=== PATIENT | female | born 1980 | race Caucasian/White ===

== ENCOUNTER 2016-11-04 15:14 | Emergency (ER) | payer MEDICARE, MEDICAID ==
[~2016-11-04] VITALS: Ht 170.2 cm; Wt 116.0 kg
[~2016-11-04 15:14] MED LIST: AMOX250T PO; AMOX500T2 PO; HYDR-4246 PO
[2016-11-04 15:17] VITALS: Ht 170.2 cm; Wt 116.0 kg
--- OUTSIDE RECORDS SUMMARY | 2016-11-04 15:18 | XMS REPORT | Continuity of Care Document ---
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[employer] Unknown [phone] Insurance Providers Payer Name Policy Number Subscriber Name Relationship Medicare [id number] Diane Sabillon 20 Self Jonnie [employer] [id number] Diane Sabillon 20 Self Advance Directives Directive Response Recorded Date/Time Advanced Directives Type None 10/01/14 7:44pm Problems Medical Problems Problem Onset Date Status Toothache Unknown Active Toothache Unknown Active Medications Medication Dose Route Sig Days/Qty Instructions Order Date Discontinued Date Status Ranitidine Hcl 15 Mg PO TWICE A DAY 03/09/11 03/09/11 Discontinued Amoxicillin Trihydrate 500 Mg PO TWICE A DAY 10/01/14 Active Amoxicillin 1 Tab PO THREE TIMES A DAY 10 Qty 10/01/14 Active Hydrocodone/Acetaminophen 1-2 Tab PO Every 6 Hours PRN PAIN 15 Qty 07/05 Active Social History Social History Problem Response Recorded Date/Time Chewing Tobacco Status No 10/01/2014 7:55pm Hx Substance Use No 10/01/2014 7:55pm Hx Alcohol Use No 10/01/2014 7:55pm Query Response Start Date Stop Date Smoking Status Never smoker Hospital Discharge Instructions No hospital discharge instructions. Plan of Care No plan of care. Functional Status Query Response Date Recorded Physical Hygiene Self October 01, 2014 7:55pm Disabilities Visual October 01, 2014 7:55pm Devices Used Glasses October 01, 2014 7:55pm Dressing Self October 01, 2014 7:55pm Ambulation Self October 01, 2014 7:55pm Diet Self October 01, 2014 7:55pm Mental Status Alert Oriented October 01, 2014 7:55pm Disabilities Visual October 01, 2014 7:55pm Devices Used Glasses October 01, 2014 7:55pm Physical Hygiene Self October 01, 2014 7:55pm Dressing Self October 01, 2014 7:55pm Ambulation Self October 01, 2014 7:55pm Diet Self October 01, 2014 7:55pm Allergies, Adverse Reactions, Alerts Allergen Type Severity Reaction Status Last Updated No Known Allergies Active 10/01/14 Immunizations Name Given Type Hx Influenza Vaccination Y fall 2013 Historical Hx Pneumococcal Vaccination No Historical Hx Influenza Vaccination Y fall 2013 Historical Vital Signs Acute Vital Signs Vital Response Date/Time Temperature (Fahrenheit) 97.4 deg F (96.8 - 99.1) Temperature (Calculated Celsius) 36.56988 degrees C (36.0 - 37.3) Pulse Rate (adult) 88 bpm (60 - 100) Respiratory Rate 14 breaths/min (10 - 20) O2 Sat by Pulse Oximetry 99 % (90 - 100) Blood Pressure 138/78 mm Hg Height 5 ft 5 in Weight 261 lb Body Mass Index 43.0 kg/m^2 Results Test Source Date Result Interp. Ref. Range Comments Alanine Aminotransferase (ALT/SGPT) March 09, 2011 6:33pm 15 U/L N 9-52 Albumin March 09, 2011 6:33pm 4.4 G/DL N 3.5-5.0 Albumin/Globulin Ratio March 09, 2011 6:33pm 1.4 RATIO N 1.1-2.2 Alkaline Phosphatase March 09, 2011 6:33pm 93 U/L N 38-126 Anion Gap March 09, 2011 6:33pm 12 MEQ/L N 5-15 Aspartate Amino Transf (AST/SGOT) March 09, 2011 6:33pm 17 U/L N 14-36 BUN/Creatinine Ratio March 09, 2011 6:33pm 12 RATIO N 6-26 Basophils # (Auto) March 09, 2011 6:33pm 0.0 T/MM3 N 0-0.2 Basophils (%) (Auto) March 09, 2011 6:33pm 0.4 % N 0-2 Blood Urea Nitrogen March 09, 2011 6:33pm 12.0 MG/DL N 7-17 Calcium Level March 09, 2011 6:33pm 9.4 MG/DL N 8.4-10.2 Calculated Osmolality March 09, 2011 6:33pm 286 MOSM/KG H 261-280 Carbon Dioxide Level March 09, 2011 6:33pm 26 MEQ/L N 22-30 Chloride Level March 09, 2011 6:33pm 109 MEQ/L H 98-107 Creatinine March 09, 2011 6:33pm 1.0 MG/DL N 0.7-1.2 Eosinophils # (Auto) March 09, 2011 6:33pm 0.2 T/MM3 N 0-0.5 Eosinophils (%) (Auto) March 09, 2011 6:33pm 1.8 % N 0-4 Globulin March 09, 2011 6:33pm 3.2 G/DL N 2.4-3.6 Glucose Level March 09, 2011 6:33pm 178 MG/DL H 65-110 Hematocrit March 09, 2011 6:33pm 38.3 % N 36-46 Hemoglobin March 09, 2011 6:33pm 12.8 GM/DL N 12-16 Lymphocytes # (Auto) March 09, 2011 6:33pm 1.7 T/MM3 N 1-4.8 Lymphocytes (%) (Auto) March 09, 2011 6:33pm 16.8 % L 23-45 Mean Corpuscular Hemoglobin March 09, 2011 6:33pm 30.3 UUG N 26-34 Mean Corpuscular Hemoglobin Concent March 09, 2011 6:33pm 33.4 GM/DL N 31 -37 Mean Corpuscular Volume March 09, 2011 6:33pm 90.5 UM3 N 80-100 Mean Platelet Volume March 09, 2011 6:33pm 9.9 UM3 N 9.4-12.4 Monocytes # (Auto) March 09, 2011 6:33pm 0.5 T/MM3 N 0-0.8 Monocytes (%) (Auto) March 09, 2011 6:33pm 4.6 % N 0-9.0 Monoscreen March 09, 2011 6:33pm Negative - Neutrophils # (Auto) March 09, 2011 6:33pm 7.5 T/MM3 N 1.8-7.7 Neutrophils (%) (Auto) March 09, 2011 6:33pm 76.2 % H 33-66 Platelet Count March 09, 2011 6:33pm 279 T/MM3 N 130-400 Potassium Level March 09, 2011 6:33pm 4.2 MEQ/L N 3.6-5 RDW Standard Deviation March 09, 2011 6:33pm 41.8 FL N 36.9-50.2 Red Blood Count March 09, 2011 6:33pm 4.23 M/MM3 N 4.00-5.20 Sodium Level March 09, 2011 6:33pm 147 MEQ/L H 134-144 Total Bilirubin March 09, 2011 6:33pm 0.30 MG/DL N 0.20-1.30 Total Protein March 09, 2011 6:33pm 7.6 G/DL N 6.3-8.2 Urine Bacteria March 09, 2011 6:15pm 1+ H - Has specimen been collected/ obtained? Y Urine Bilirubin March 09, 2011 6:15pm Negative - Has specimen been collected/obtained? Y Urine Blood March 09, 2011 6:15pm 3+ H - Has specimen been collected/ obtained? Y Urine Collection Type March 09, 2011 6:15pm Voided - Has specimen been collected/obtained? Y Urine Color March 09, 2011 6:15pm Yellow - Has specimen been collected /obtained? Y Urine Culture Indicated March 09, 2011 6:15pm Cult not set up - Has specimen been collected/obtained? Y Urine Glucose (UA) March 09, 2011 6:15pm Negative - Has specimen been collected/obtained? Y Urine Ketones March 09, 2011 6:15pm Trace H - Has specimen been collected/obtained? Y Urine Leukocyte Esterase March 09, 2011 6:15pm Negative - Has specimen been collected/obtained? Y Urine Nitrite March 09, 2011 6:15pm Negative - Has specimen been collected/obtained? Y Urine Test March 09, 2011 6:15pm Negative - Has specimen been collected/obtained? Y Urine Protein March 09, 2011 6:15pm Negative - Has specimen been collected/obtained? Y Urine RBC March 09, 2011 6:15pm 10-20 /HPF H - Has specimen been collected/obtained? Y Urine Specific [place] March 09, 2011 6:15pm 1.025 - Has specimen been collected/obtained? Y Urine Squamous Epithelial Cells March 09, 2011 6:15pm Many - Has specimen been collected/obtained? Y Urine Turbidity March 09, 2011 6:15pm Slt cldy - Has specimen been collected/obtained? Y Urine Urobilinogen March 09, 2011 6:15pm Normal EU/DL - Has specimen been collected/obtained? Y Urine WBC March 09, 2011 6:15pm 1-3 /HPF - Has specimen been collected /obtained? Y Urine pH March 09, 2011 6:15pm 5.0 - Has specimen been collected/ obtained? Y White Blood Count March 09, 2011 6:33pm 9.9 T/MM3 N 4.5-11.0 Glomerular Filtration Rate Calc March 09, 2011 6:33pm 66 - Immature Granulocyte # (Auto) March 09, 2011 6:33pm 0.02 T/MM3 N 0.00- 0.03 Immature Granulocyte % (Auto) March 09, 2011 6:33pm 0.2 % N 0.0-0.5 Procedures Procedure Status Date Provider(s) EMERGENCY DEPT VISIT completed 10/01/14 [id number] ITEM OR SERVICE completed 10/01/14 Encounters Encounter Location Date/Time Departed Emergency Room [facility] 10/01/14 7:41pm Recent Diagnosis
--- OUTSIDE RECORDS SUMMARY | 2016-11-04 15:18 | XMS REPORT | Continuity of Care Document ---
Author Author [facility] Organization [facility] Address Unknown Phone Unavailable Allergies Medications Problems Procedures Results Encounters ACCT No. Visit Date/Time Discharge Status Pt. Type Provider Facility Loc./Unit Complaint [id number] 11/04/2013 10:40:00 11/04/2013 23 :59:59 CLS Outpatient
--- OUTSIDE RECORDS SUMMARY | 2016-11-04 15:19 | XMS REPORT | Referral Summary ---
Author Author [facility] Organization [facility] Address Unknown Phone Unavailable Care Team Providers Care Kraft Mill Operator Name Role Phone Mat Lyman Primary Care Physician [phone] Encounter Date(s): 09/12/16 - 09/12/16 [facility] [address] [place] [id number]- Discharge Diagnosis: Gastroesophageal reflux disease (disorder) Discharge Diagnosis: Benign essential HTN Discharge Diagnosis: Allergic rhinitis (disorder) Discharge Diagnosis: Depression Discharge Disposition: 01-Home or Self Care Attending Physician: Cm Lyman MD Admitting Physician: Cm Lyman MD Vital Signs Most recent to 1 oldest [Reference Range]: Temperature Tympanic 36.4 degC [36.6-38.1 degC] *LOW* (09/12/16 2:24 PM) Peripheral Pulse 84 bpm Rate [60-100 bpm] (09/12/16 2:24 PM) Respiratory Rate 16 br/min [14-20 br/min] (09/12/16 2:24 PM) Blood Pressure 100/76 mmHg [90-140/60-90 mmHg] (09/12/16 2:24 PM) Problem List Condition Effective Dates Status Health Status Informant Allergic rhinitis Active (disorder)(Confirmed ) Diabetes(Confirmed) Active Gastroesophageal Active reflux disease (disorder)(Confirmed ) Impaired fasting Active glycaemia (disorder)(Confirmed ) Obesity Active (disorder)(Confirmed ) Pneumonia(Confirmed) Active Depression(Confirmed Active ) Tension Active headache(Confirmed) Chicken Active pox(Confirmed) Allergies, Adverse Reactions, Alerts No Known Allergies Medications Claritin 10 mg oral tablet 10 mg 1 tabs, Oral, Daily, # 90 tabs, 3 Refill(s) Start Date: 09/12/16 Status: Ordered Flonase 50 mcg/inh nasal spray 100 mcg 2 sprays, Nasal, Daily, # 16 g, 5 Refill(s), Pharmacy: [facility] [place] Start Date: 07/06/16 Status: Ordered lisinopril 20 mg oral tablet 20 mg 1 tabs, Oral, Daily, # 30 tabs, 6 Refill(s), Pharmacy: [facility] [place] Start Date: 05/31/16 Status: Ordered loratadine 10 mg, Oral, Daily, 0 Refill(s) Start Date: 04/29/15 Status: Ordered medroxyPROGESTERone 150 mg/mL intramuscular suspension 150 mg 1 mL, IntraMuscular, q3mo, # 1 mL, 3 Refill(s), Pharmacy: [facility] [place], for control, 1 mL IntraMuscular q3mo Start Date: 01/27/16 Status: Ordered ranitidine 150 mg oral tablet 150 mg 1 tabs, Oral, BID, # 180 tabs, 0 Refill(s) Start Date: 12/10/15 Status: Ordered Tylenol Regular Strength 325 mg oral tablet 650 mg 2 tabs, Oral, q4hr, as needed for pain, 0 Refill(s) Start Date: 12/10/15 Status: Ordered Results No data available for this section Immunizations Given and Recorded Vaccine Date Status Refusal Reason tetanus/diphth/pertuss (Tdap) adult/adol1 12/18/07 Recorded hepatitis B pediatric vaccine 03/13/06 Given hepatitis B pediatric vaccine 10/14/05 Given hepatitis B pediatric vaccine 09/13/05 Given human papillomavirus vaccine 01/02/07 Given human papillomavirus vaccine 11/03/06 Given influenza virus vaccine, inactivated 05/15/15 Recorded influenza virus vaccine, inactivated 09/06/11 Recorded influenza virus vaccine, inactivated 06/03/10 Recorded influenza virus vaccine, inactivated 04/29/10 Recorded influenza virus vaccine, inactivated 05/29/09 Recorded influenza virus vaccine, inactivated 07/03/07 Recorded influenza virus vaccine, inactivated 08/02/04 Recorded influenza virus vaccine, live 06/25/13 Given tetanus/diphtheria/pertussis, acel(Tdap) 12/18/07 Recorded 1Result Comment: [06/25/2015 Uncharted] duplicate Procedures Procedure Date Related Diagnosis Body Site PAP test date 07/15/15 Social History Social History Type Response Smoking Status Never smoker Assessment and Plan Extracted from: Title: Office Visit Note Author: Cm Lyman MD Date: 09/12/16 Assessment/Plan 1.Allergic rhinitis (disorder) Claritin 10 mg by mouth daily regularly and see if that doesn't help. Continue fluticasone spray. 2.Depression Chronic relatively stable no change in current treatment. 3.Gastroesophageal reflux disease (disorder) Chronic and stable no change in current treatment. 4.Benign essential HTN Blood pressures adequately controlled no change in current treatment recommended. She will be due for lab in recommended a CBC CMP and lipid panel fasting then.
--- OUTSIDE RECORDS SUMMARY | 2016-11-04 15:19 | XMS REPORT | Referral Summary ---
Author Author [facility], [facility] Organization [facility] Address Unknown Phone Unavailable Care Team Providers Care Budget Director Name Role Phone Mat Lyman Primary Care Physician [phone] Encounter Date(s): 05/04/15 - 05/04/15 [facility] [address] [place] [address] Discharge Diagnosis: Cellulitis Discharge Disposition: 01-Home or Self Care Attending Physician: Neri Galicia PA-C Admitting Physician: Neri Galiica PA-C Vital Signs Most recent to 1 oldest [Reference Range]: Temperature Tympanic 37.0 degC [36.6-38.1 degC] (05/04/15 4:35 PM) Apical Heart Rate 114 bpm [60-100 bpm] *HI* (05/04/15 4:35 PM) SpO2 98 % (05/04/15 4:35 PM) Problem List Condition Effective Dates Status Health Status Informant Allergic rhinitis Active (disorder)(Confirmed ) Depression(Confirmed Active ) Diabetes(Confirmed) Active Gastroesophageal Active reflux disease (disorder)(Confirmed ) Impaired fasting Active glycaemia (disorder)(Confirmed ) Obesity Active (disorder)(Confirmed ) Pneumonia(Confirmed) Active Tension Active headache(Confirmed) Chicken Active pox(Confirmed) Allergies, Adverse Reactions, Alerts No Known Allergies Medications Depo-Provera 400 mg/mL intramuscular suspension 150 mg, IntraMuscular, q3mo, # 3 vials, 1 Refill(s), Pharmacy: [facility] [place], 150 mg IntraMuscular q3mo Start Date: 01/26/15 Status: Ordered loratadine 10 mg, Oral, Daily, 0 Refill(s) Start Date: 04/29/15 Status: Ordered Results No data available for this section Immunizations Vaccine Date Refusal Reason hepatitis B pediatric vaccine 03/13/06 hepatitis B pediatric vaccine 10/14/05 hepatitis B pediatric vaccine 09/13/05 human papillomavirus vaccine 5/15/07 human papillomavirus vaccine 11/03/06 influenza virus vaccine, inactivated 05/15/15 influenza virus vaccine, inactivated 09/06/11 influenza virus vaccine, inactivated 06/03/10 influenza virus vaccine, inactivated 04/29/10 influenza virus vaccine, inactivated 05/29/09 influenza virus vaccine, inactivated 07/03/07 influenza virus vaccine, inactivated 08/02/04 influenza virus vaccine, live 06/25/13 tetanus/diphtheria/pertussis, acel(Tdap) 12/18/07 Procedures No data available for this section Social History Social History Type Response Smoking Status Never smoker Assessment and Plan Extracted from: Title: Ambulatory Patient Education Author: Neri Galicia PA-C Date: Home Health Care Cellulitis Cellulitis is an infection of the skin and the tissue beneath it. The infected area is usually red and tender. Cellulitis occurs most often in the arms and lower legs. CAUSES Cellulitis is caused by bacteria that enter the skin through cracks or cuts in the skin. The most common types of bacteria that cause cellulitis are Staphylococcus and Streptococcus. SYMPTOMS Redness and warmth. Swelling. Tenderness or pain. Fever. DIAGNOSIS Your caregiver can usually determine what is wrong based on a physical exam. Blood tests may also be done. TREATMENT Treatment usually involves taking an antibiotic medicine. HOME CARE INSTRUCTIONS Take your antibiotics as directed. Finish them even if you start to feel better. Keep the infected arm or leg elevated to reduce swelling. Apply a warm cloth to the affected area up to 4 times per day to relieve pain. Only take [id number] or prescription medicines for pain, discomfort, or fever as directed by your caregiver. Keep all follow-up appointments as directed by your caregiver. SEEK MEDICAL CARE IF: You notice red streaks coming from the infected area. Your red area gets larger or turns dark in color. Your bone or joint underneath the infected area becomes painful after the skin has healed. Your infection returns in the same area or another area. You notice a swollen bump in the infected area. You develop new symptoms. SEEK IMMEDIATE MEDICAL CARE IF: You have a fever. You feel very sleepy. You develop vomiting or diarrhea. You have a general ill feeling (malaise) with muscle aches and pains. MAKE SURE YOU: Understand these instructions. Will watch your condition. Will get help right away if you are not doing well or get worse. Document Released: 05/17/2006 Document Revised: 02/05/2013 Document Reviewed: [employer] Patient Information 2015 [employer]. This information is not intended to replace advice given to you by your health care provider. Make sure you discuss any questions you have with your health care provider. Cellulitis Cellulitis is an infection of the skin and the tissue beneath it. The infected area is usually red and tender. Cellulitis occurs most often in the arms and lower legs. CAUSES Cellulitis is caused by bacteria that enter the skin through cracks or cuts in the skin. The most common types of bacteria that cause cellulitis are Staphylococcus and Streptococcus. SYMPTOMS Redness and warmth. Swelling. Tenderness or pain. Fever. DIAGNOSIS Your caregiver can usually determine what is wrong based on a physical exam. Blood tests may also be done. TREATMENT Treatment usually involves taking an antibiotic medicine. HOME CARE INSTRUCTIONS Take your antibiotics as directed. Finish them even if you start to feel better. Keep the infected arm or leg elevated to reduce swelling. Apply a warm cloth to the affected area up to 4 times per day to relieve pain. Only take [id number] or prescription medicines for pain, discomfort, or fever as directed by your caregiver. Keep all follow-up appointments as directed by your caregiver. SEEK MEDICAL CARE IF: You notice red streaks coming from the infected area. Your red area gets larger or turns dark in color. Your bone or joint underneath the infected area becomes painful after the skin has healed. Your infection returns in the same area or another area. You notice a swollen bump in the infected area. You develop new symptoms. SEEK IMMEDIATE MEDICAL CARE IF: You have a fever. You feel very sleepy. You develop vomiting or diarrhea. You have a general ill feeling (malaise) with muscle aches and pains. MAKE SURE YOU: Understand these instructions. Will watch your condition. Will get help right away if you are not doing well or get worse. Document Released: 05/17/2006 Document Revised: 02/05/2013 Document Reviewed: [employer] Patient Information 2015 [employer]. This information is not intended to replace advice given to you by your health care provider. Make sure you discuss any questions you have with your health care provider. No follow up information was provided. Extracted from: Title: cellulitis Author: Neri Galicia PA-C Date: 05/04/15 Assessment/Plan 1.Cellulitis Keflex as directed; the area that was blistered, I cleansed with saline, applied Xeroform over the open area then a loose fitting bandage. Recommend keeping this area cleaned with soap and water, then dried and reapply the Xeroform and a bandage for 2 days if she began having worsening symptoms of cellulitis surrounding the lesion, then discontinue the bandage. Diagnosis and treatment discussed. Patient advised to follow up with PCP in 2- 3 days. If symptoms worsen at any time, patient will go to the nearest ER for further evaluation. Patient stable upon discharge, alert and orientated with no apparent distress, and indicated understanding of discharge instructions. Orders: cephalexin, 500 mg 1 caps, Oral, QID, X 7 days, # 28 caps, 0 Refill(s) , Pharmacy: [facility] [id number], 1 caps Oral QID,x7 days
--- OUTSIDE RECORDS SUMMARY | 2016-11-04 15:19 | XMS REPORT | Referral Summary ---
Author Author [facility] Organization [facility] Address Unknown Phone Unavailable Care Team Providers Care Case Coordinator Name Role Phone Mat Lyman Primary Care Physician [phone] Encounter [facility] [id number] Date(s): 04/29/15 - 04/29/15 [facility] [address] [place] [address]- Discharge Diagnosis: Acute sinusitis Discharge Disposition: 01-Home or Self Care Attending Physician: Cm Lyman MD Admitting Physician: Cm Lyman MD Vital Signs Most recent to 1 oldest [Reference Range]: Temperature Tympanic 37.1 degC [36.6-38.1 degC] (04/29/15 2:55 PM) Peripheral Pulse 88 bpm Rate [60-100 bpm] (04/29/15 2:55 PM) Blood Pressure 116/84 mmHg [90-140/60-90 mmHg] (04/29/15 2:55 PM) Problem List Condition Effective Dates Status [...] B pediatric vaccine 09/13/05 human papillomavirus vaccine 01/02/07 human papillomavirus vaccine 11/03/06 influenza virus vaccine, [...] Extracted from: Title: Ambulatory Patient Education Author: Cm Lyman MD Date: Allergy Sinusitis Sinusitis is redness, soreness, and swelling (inflammation) of the paranasal sinuses. Paranasal sinuses are air pockets within the bones of your face ( beneath the eyes, the middle of the forehead, or above the eyes). In healthy paranasal sinuses, mucus is able to drain out, and air is able to circulate through them by way of your nose. However, when your paranasal sinuses are inflamed, mucus and air can become trapped. This can allow bacteria and other germs to grow and cause infection. Sinusitis can develop quickly and last only a short time (acute) or continue over a long period (chronic). Sinusitis that lasts for more than 12 weeks is considered chronic. CAUSES Causes of sinusitis include: Allergies. Structural abnormalities, such as displacement of the cartilage that separates your nostrils (deviated septum), which can decrease the air flow through your nose and sinuses and affect sinus drainage. Functional abnormalities, such as when the small hairs (cilia) that line your sinuses and help remove mucus do not work properly or are not present. SYMPTOMS Symptoms of acute and chronic sinusitis are the same. The primary symptoms are pain and pressure around the affected sinuses. Other symptoms include: Upper toothache. Earache. Headache. Bad breath. Decreased sense of smell and taste. A cough, which worsens when you are lying flat. Fatigue. Fever. Thick drainage from your nose, which often is green and may contain pus ( purulent). Swelling and warmth over the affected sinuses. DIAGNOSIS Your caregiver will perform a physical exam. During the exam, your caregiver may : Look in your nose for signs of abnormal growths in your nostrils (nasal polyps). Tap over the affected sinus to check for signs of infection. View the inside of your sinuses (endoscopy) with a special imaging device with a light attached (endoscope), which is inserted into your sinuses. If your caregiver suspects that you have chronic sinusitis, one or more of the following tests may be recommended: Allergy tests. Nasal cultureA sample of mucus is taken from your nose and sent to a lab and screened for bacteria. Nasal cytologyA sample of mucus is taken from your nose and examined by your caregiver to determine if your sinusitis is related to an allergy. TREATMENT Most cases of acute sinusitis are related to a viral infection and will resolve on their own within 10 days. Sometimes medicines are prescribed to help relieve symptoms (pain medicine, decongestants, nasal steroid sprays, or saline sprays) . However, for sinusitis related to a bacterial infection, your caregiver will prescribe antibiotic medicines. These are medicines that will help kill the bacteria causing the infection. Rarely, sinusitis is caused by a fungal infection. In theses cases, your caregiver will prescribe antifungal medicine. For some cases of chronic sinusitis, surgery is needed. Generally, these are cases in which sinusitis recurs more than 3 times per year, despite other treatments. HOME CARE INSTRUCTIONS Drink plenty of water. Water helps thin the mucus so your sinuses can drain more easily. Use a humidifier. Inhale steam 3 to 4 times a day (for example, sit in the bathroom with the shower running). Apply a warm, moist washcloth to your face 3 to 4 times a day, or as directed by your caregiver. Use saline nasal sprays to help moisten and clean your sinuses. Take tbhk-fjp-eaxbwuw or prescription medicines for pain, discomfort, or fever only as directed by your caregiver. SEEK IMMEDIATE MEDICAL CARE IF: You have increasing pain or severe headaches. You have nausea, vomiting, or drowsiness. You have swelling around your face. You have vision problems. You have a stiff neck. You have difficulty breathing. MAKE SURE YOU: Understand these instructions. Will watch your condition. Will get help right away if you are not doing well or get worse. Document Released: 08/07/2006 Document Revised: 10/29/2012 Document Reviewed: [facility] Patient Information 2015 [employer] [facility]. This information is not intended to replace advice given to you by your health care provider. Make sure you discuss any questions you have with your health care provider. No follow up information was provided. Extracted from: Title: Office Visit Note Author: Cm Lyman MD Date: 04/29/15 Assessment/Plan Acute sinusitis I recommended Zithromax as a Z-Sai. Encouraged her to use lyof-qpm-rllxyzf plain Mucinex. I called out some Kehinde Ivy for her. If she's not improving over the next week or symptoms seem to be progressive or worsening she'll let us know. Ordered: Office Visit Level 3 Est 78153 Orders: benzonatate, 100 mg 1 caps, Oral, TID, X 7 days, # 21 caps, 0 Refill(s ), Pharmacy: [facility] [id number], 1 caps Oral TID,x7 days
--- OUTSIDE RECORDS SUMMARY | 2016-11-04 15:19 | XMS REPORT | Referral Summary ---
Author Author [facility] Organization Via [facility] Address Unknown Phone Unavailable Care Team Providers Care Palm And Back Forger Name Role Phone Mat Lyman Primary Care Physician [phone] Encounter Date(s): 04/06/16 - 04/06/16 [facility] [address] [place] [id number] Discharge Diagnosis: Benign essential HTN Discharge Diagnosis: Hand eczema Discharge Disposition: 01-Home or Self Care Attending Physician: Cm Lyman MD Admitting Physician: Cm Lyman MD Referring Physician: Cm Lyman MD Vital Signs Most recent to 1 oldest [Reference Range]: Temperature Tympanic 36.5 degC [36.6-38.1 degC] *LOW* (04/06/16 2:11 PM) Peripheral Pulse 76 bpm Rate [60-100 bpm] (04/06/16 2:11 PM) Respiratory Rate 16 br/min [14-20 br/min] (04/06/16 2:11 PM) Blood Pressure 116/74 mmHg [90-140/60-90 mmHg] (04/06/16 2:11 PM) Problem List Condition Effective Dates Status Health Status Informant Allergic rhinitis Active (disorder)(Confirmed ) Depression(Confirmed Active ) Diabetes(Confirmed) Active Gastroesophageal Active reflux disease (disorder)(Confirmed ) Impaired fasting Active glycaemia (disorder)(Confirmed ) Obesity Active (disorder)(Confirmed ) Pneumonia(Confirmed) Active Tension Active headache(Confirmed) Chicken Active pox(Confirmed) Allergies, Adverse Reactions, Alerts No Known Allergies Medications Flonase 50 mcg/inh nasal spray 2 sprays, Nasal, Daily, # 16 g, 0 Refill(s) Start Date: 12/10/15 Status: Ordered lisinopril 20 mg oral tablet 20 mg 1 tabs, Oral, Daily, # 30 tabs, 6 Refill(s) Start Date: 12/09/15 Status: Ordered loratadine 10 mg, Oral, Daily, 0 Refill(s) Start Date: 04/29/15 Status: Ordered medroxyPROGESTERone 150 mg/mL intramuscular suspension 150 mg 1 mL, IntraMuscular, q3mo, # 1 mL, 3 Refill(s), Pharmacy: [facility], for control, 1 mL IntraMuscular q3mo Start [...] vaccine, live 06/25/13 tetanus/diphtheria/pertussis, acel(Tdap) 12/18/07 Procedures Procedure Date Related Diagnosis Body Site PAP test date 07/15/15 Social History Social History Type Response Smoking Status Never smoker Assessment and Plan Extracted from: Title: Office Visit Note Author: Cm Lyman MD Date: 04/06/16 Assessment/Plan 1.Benign essential HTN Blood pressures well-controlled. Continue current dose of lisinopril. Report card reviewed and provided. Follow-up in 6 months sooner if problems or concerns occur. Ordered: Office Visit Level 3 Est 48848 2.Hand eczema, Other atopic dermatitis I recommended smaller rmvs-iln-oeldlro hydrocortisone creamto be used as needed. Ifrash worsens or further problems develop she'll let us now. She may continue to use volq-vec-vwunsts moisturizers as well. Ordered: Office Visit Level 3 Est 29633
--- OUTSIDE RECORDS SUMMARY | 2016-11-04 15:19 | XMS REPORT | Referral Summary ---
Author Author [facility] Organization Via [facility] Sof[facility] Address Unknown Phone Unavailable Care Team Providers Care Cash Control Specialist Name Role Phone Mat Lyman Primary Care Physician [phone] Encounter [facility] Date(s): 01/07/16 - 01/07/16 [facility] [address] [place] [id number] Discharge Diagnosis: Benign essential HTN Discharge Disposition: 01-Home or Self Care Attending Physician: Cm Lyman MD Admitting Physician: Cm Lyman MD Vital Signs Most recent to 1 oldest [Reference Range]: Temperature Tympanic 36.7 degC [36.6-38.1 degC] (01/07/16 2:01 PM) Peripheral Pulse 84 bpm Rate [60-100 bpm] (01/07/16 2:01 PM) Respiratory Rate 16 br/min [14-20 br/min] (01/07/16 2:01 PM) Blood Pressure 114/66 mmHg [90-140/60-90 mmHg] (01/07/16 2:01 PM) Problem List Condition Effective Dates Status [...] IntraMuscular q3mo Start Date: 01/26/15 Status: Ordered Flonase 50 mcg/inh nasal spray 2 sprays, Nasal, Daily, # 16 g, 0 Refill(s) Start Date: 4/21/16 Status: Ordered lisinopril 20 mg oral tablet 20 mg 1 tabs, Oral, Daily, # 30 tabs, 6 Refill(s) Start Date: 12/09/15 Status: Ordered loratadine 10 mg, Oral, Daily, 0 Refill(s) Start Date: 04/29/15 Status: Ordered ranitidine 150 mg oral tablet [...] Visit Note Author: Cm Lyman MD Date: 01/07/16 Assessment/Plan 1.Benign essential HTN Blood pressure appears to be well controlled. Continue lisinopril 20 mg daily. Other medications reviewed no changes are recommended. Three-month follow-up encouraged. Call with problems or concerns. Ordered: Office Visit Level 3 Est 23670
--- OUTSIDE RECORDS SUMMARY | 2016-11-04 15:19 | XMS REPORT | Referral Summary ---
Author Author [facility] Organization Via [facility] Sofia [facility] Address Unknown Phone Unavailable Care Team Providers Care Hardener Helper Name Role Phone Mat Lyman Primary Care Physician [phone] Encounter [facility] Date(s): 10/12/16 - 10/12/16 [facility] [address] [place] [phone] [place] Discharge Diagnosis: Acute pharyngitis Discharge Diagnosis: Benign essential HTN Discharge Disposition: 01-Home or Self Care Attending Physician: Cm Lyman MD Admitting Physician: Cm Lyman MD Vital Signs Most recent to 1 oldest [Reference Range]: Temperature Tympanic 36.7 degC [36.6-38.1 degC] (10/12/16 2:16 PM) Peripheral Pulse 100 bpm Rate [60-100 bpm] (10/12/16 2:16 PM) Respiratory Rate 6 br/min [14-20 br/min] *LOW* (10/12/16 2:16 PM) Blood Pressure 108/76 mmHg [90-140/60-90 mmHg] (10/12/16 2:16 PM) Problem List Condition Effective Dates Status Health Status Informant Allergic rhinitis Active (disorder)(Confirmed ) Benign essential Active HTN(Confirmed) Diabetes(Confirmed) Active Gastroesophageal Active reflux disease (disorder)(Confirmed [...] 16 g, 5 Refill(s), Pharmacy: [facility] Start Date: 07/06/16 Status: Ordered lisinopril 20 mg oral tablet 20 mg 1 tabs, Oral, Daily, # 30 tabs, 6 Refill(s), Pharmacy: [facility] [place] Start Date: 05/31/16 Status: Ordered medroxyPROGESTERone 150 mg/mL intramuscular suspension 150 mg 1 mL, IntraMuscular, q3mo, # 1 mL, 3 Refill(s), Pharmacy: [facility] [place], for control, 1 mL IntraMuscular q3mo Start [...] vaccine 11/03/06 Given influenza virus vaccine, inactivated 05/21/16 Recorded influenza virus vaccine, inactivated 05/15/15 Recorded influenza [...] Visit Note Author: Cm Lyman MD Date: 10/12/16 Assessment/Plan 1.Acute pharyngitis,Sore throat Rapid strep is negative. I think this is likely viral upper respiratory infection. I've recommended symptomatic treatment with Tylenol or ibuprofen as needed warm salt water gargles as neededrest and increased fluid intake encouraged. If symptoms progress or worsen or further problems develop follow- up. Ordered: Office Visit Level 3 Est 00691 2.Benign essential HTN Blood pressure appears well controlled no change in current treatment. Ordered: Office Visit Level 3 Est 68431
--- OUTSIDE RECORDS SUMMARY | 2016-11-04 15:19 | XMS REPORT | Referral Summary ---
Author Author [facility] Organization Via [facility] Sof[facility] Address Unknown Phone Unavailable Care Team Providers Care Employee Development Manager Name Role Phone Mat Lyman Primary Care Physician [phone] Encounter Date(s): 01/19/15 - 01/19/15 [facility] Newton [address] [place] [phone]- Discharge Diagnosis: Bronchitis, acute Discharge Disposition: 01-Home or Self Care Attending Physician: Cm Lyman MD Admitting Physician: Cm Lyman MD Vital Signs Most recent to 1 oldest [Reference Range]: Temperature Tympanic 36.8 degC [36.6-38.1 degC] (01/19/15 4:30 PM) Peripheral Pulse 96 bpm Rate [60-100 bpm] (01/19/15 4:30 PM) Blood Pressure 140/90 mmHg [90-140/60-90 mmHg] (01/19/15 4:30 PM) Problem List Condition Effective Dates Status [...] Patient Education Author: Cm Lyman MD Date: Family Medicine Acute Bronchitis Bronchitis is inflammation of the airways that extend from the windpipe into the lungs (bronchi ). The inflammation often causes mucus to develop. This leads to a cough, which is the most common symptom of bronchitis. In acute bronchitis, the condition usually develops suddenly and goes away over time, usually in a couple weeks. Smoking, allergies, and asthma can make bronchitis worse. Repeated episodes of bronchitis may cause further lung problems. CAUSES Acute bronchitis is most often caused by the same virus that causes a cold. The virus can spread from person to person (contagious ). SIGNS AND SYMPTOMS Cough. Fever. Coughing up mucus. Body aches. Chest congestion. Chills. Shortness of breath. Sore throat. DIAGNOSIS Acute bronchitis is usually diagnosed through a physical exam. Tests, such as chest X-rays, are sometimes done to rule out other conditions. TREATMENT Acute bronchitis usually goes away in a couple weeks. Often times, no medical treatment is necessary. Medicines are sometimes given for relief of fever or cough. Antibiotics are usually not needed but may be prescribed in certain situations. In some cases, an inhaler may be recommended to help reduce shortness of breath and control the cough. A cool mist vaporizer may also be used to help thin bronchial secretions and make it easier to clear the chest. HOME CARE INSTRUCTIONS Get plenty of rest. Drink enough fluids to keep your urine clear or pale yellow (unless you have a medical condition that requires fluid restriction). Increasing fluids may help thin your secretions and will prevent dehydration. Only take lakx-kai-cbuftyc or prescription medicines as directed by your health care provider. Avoid smoking and secondhand smoke. Exposure to cigarette smoke or irritating chemicals will make bronchitis worse. If you are a smoker, consider using nicotine gum or skin patches to help control withdrawal symptoms. Quitting smoking will help your lungs heal faster. Reduce the chances of another bout of acute bronchitis by washing your hands frequently, avoiding people with cold symptoms, and trying not to touch your hands to your mouth, nose, or eyes. Follow up with your health care provider as directed. SEEK MEDICAL CARE IF: Your symptoms do not improve after 1 week of treatment. SEEK IMMEDIATE MEDICAL CARE IF: You develop an increased fever or chills. You have chest pain. You have severe shortness of breath. You have bloody sputum. You develop dehydration. You develop fainting. You develop repeated vomiting. You develop a severe headache. MAKE SURE YOU: Understand these instructions. Will watch your condition. Will get help right away if you are not doing well or get worse. Document Released: 09/14/2005 Document Revised: 04/09/2014 Document Reviewed: [facility] Patient Information [address] [employer] [facility]. No follow up information was provided. Extracted from: Title: Office Visit Note Author: Cm Lyman MD Date: 01/19/15 Assessment/Plan Bronchitis, acute I recommended Zithromax as a Z-Sai. Pzon-wvj-ongqtht Mucinex may be helpful for the next few days. Rest and increased fluid intake encouraged. If symptoms persist or worsen or further problems develop follow- up. Ordered: Office Visit Level 3 Est 04766
--- OUTSIDE RECORDS SUMMARY | 2016-11-04 15:19 | XMS REPORT | Referral Summary ---
Author Organization Unknown Address Unknown Phone Unavailable Care Team Providers Care Field Crop Technical Officer Name Role Phone Grant Dobbs JR Primary Care Physician [phone] Encounter [facility] [id number] Date(s): 09/25/14 - 09/25/14 [facility], Shaun[facility] [address] [place] [address] [place] [address] Discharge Diagnosis: Pharyngitis Discharge Diagnosis: Acute URI Discharge Disposition: Home or Self Care Attending Physician: Genoveva Jane APRN Admitting Physician: Genoveva Jane APRN Vital Signs Most recent to 1 oldest [Reference Range]: Temperature Tympanic 36.6 degC [36.6-38.1 degC] (09/25/14 9:37 AM) Peripheral Pulse 76 bpm Rate [60-100 bpm] (09/25/14 9:37 AM) Blood Pressure 122/84 mmHg [90-140/60-90 mmHg] (09/25/14 9:37 AM) Problem List Condition Effective Dates Status Health Status Informant Allergic rhinitis Active (disorder)(Confirmed ) Gastroesophageal Active reflux disease (disorder)(Confirmed ) Impaired fasting Active glycaemia (disorder)(Confirmed ) Obesity Active (disorder)(Confirmed ) Allergies, Adverse Reactions, Alerts No data available for this section Medications amoxicillin 875 mg oral tablet 1 tabs, Oral, BID, X 10 days, # 20 tabs, 0 Refill(s), Pharmacy: [facility] [place], 1 tabs Oral BID,x10 days Start Date: 09/25/14 Stop Date: 10/05/14 Status: Ordered Depo-Provera mg, IntraMuscular, 0 Refill(s) Start Date: 09/25/14 Status: Ordered Results No data available for this section Immunizations Vaccine Date Refusal Reason hepatitis B pediatric vaccine 03/13/06 hepatitis B pediatric vaccine 10/14/05 hepatitis B pediatric vaccine 09/13/05 human papillomavirus vaccine 01/02/07 human papillomavirus vaccine 11/03/06 influenza virus vaccine, live 06/25/13 tetanus/diphtheria/pertussis, acel(Tdap) 12/18/07 Procedures No data available for this section Social History Social History Type Response Smoking Status Never smoker Assessment and Plan Extracted from: Title: Office Visit Note Author: Genoveva Jane INDEPENDENT LIVING INSTRUCTOR Date: 09/25/14 Assessment/Plan Acute URI Mucinex 1200 mg twice a day as needed for cough. Good hand washing. Extra fluids. Ordered: Office Visit Level 3 Est 58734 Pharyngitis Rapid strep (-).Increase fluid intake. Recommend OTC chloraseptic spray, throat lozenges, or salt water gargle for comfort as needed. Recommend OTC Tylenol and/or Ibuprofen per package instructions as needed for fever, pain, and body aches. No aspirin. Amoxicillin 875 mg twice a day x 1 days. Follow up if symptoms worsen or fail to improve within 48-72 hours. Ordered: Office Visit Level 3 Est [id number] Orders: amoxicillin, 1 tabs, Oral, BID, X 10 days, # 20 tabs, 0 Refill(s), Pharmacy: [facility] [place], 1 tabs Oral BID,x10 days Addendum I reviewed this chart, the patient's medical history, and the by Rinku Resident's/INDEPENDENT LIVING INSTRUCTOR's/PA/RN's/PharmD's documented findings, and concur with the assessment and Kyle MARROQUIN plan as above. Grant ENRIQUEZ, FAAFP on 25 September 2014 14:13:30 WOMENS VOLLEYBALL COACH
--- OUTSIDE RECORDS SUMMARY | 2016-11-04 15:19 | XMS REPORT | Referral Summary ---
Author Author [facility] Organization [facility] Address Unknown Phone Unavailable Care Team Providers Care Finishing Operator Name Role Phone Mat Lyman Primary Care Physician [phone] Encounter [facility] Date(s): 07/15/15 - 07/15/15 [facility]ia [facility] [address] [place] [phone] [place] Discharge Diagnosis: Well woman exam Discharge Disposition: 01-Home or Self Care Attending Physician: Cm Lyman MD Admitting Physician: Cm Lyman MD Referring Physician: Cm Lyman MD Vital Signs Most recent to 1 oldest [Reference Range]: Temperature Tympanic 37.2 degC [36.6-38.1 degC] (07/15/15 10:08 AM) Peripheral Pulse 84 bpm Rate [60-100 bpm] (07/15/15 10:08 AM) Respiratory Rate 18 br/min [14-20 br/min] (07/15/15 10:08 AM) Blood Pressure 130/88 mmHg [90-140/60-90 mmHg] (07/15/15 10:08 AM) Problem List Condition Effective Dates Status [...] Visit Note Author: Cm Lyman MD Date: 07/15/15 Assessment/Plan Pap smear for cervical cancer screening Pap smear was obtained today. Continue Depo-Provera without change. Ordered: Periodic Comp Preventive Med 18 to 39 years Est 14769 Well woman exam Healthy lifestyle reviewed and encouraged. Regular exercise low-fat diet. Yearly follow-up encouraged. Ordered: Periodic Comp Preventive Med 18 to 39 years Est 45649
--- OUTSIDE RECORDS SUMMARY | 2016-11-04 15:19 | XMS REPORT | Referral Summary ---
Author Author [facility] Organization [facility] Address Unknown Phone Unavailable Care Team Providers Care Line Locator Name Role Phone Mat Lyman Primary Care Physician [phone] Encounter Date(s): 12/09/15 - 12/09/15 [facility] [address] [place] [id number] Discharge Diagnosis: Obesity Discharge Diagnosis: Benign essential HTN Discharge Disposition: 01-Home or Self Care Attending Physician: Cm Lyman MD Vital Signs Most recent to 1 oldest [Reference Range]: Temperature Tympanic 37.0 degC [36.6-38.1 degC] (12/09/15 2:35 PM) Peripheral Pulse 84 bpm Rate [60-100 bpm] (12/09/15 2:35 PM) Respiratory Rate 18 br/min [14-20 br/min] (12/09/15 2:35 PM) Blood Pressure 154/100 mmHg [90-140/60-90 mmHg] *HI* (12/09/15 2:35 PM) Problem List Condition Effective Dates Status [...] IntraMuscular q3mo Start Date: 01/26/15 Status: Ordered lisinopril 20 mg oral tablet 20 mg 1 tabs, Oral, Daily, # 30 tabs, 6 Refill(s) Start Date: 12/09/15 Status: Ordered loratadine 10 mg, Oral, Daily, 0 Refill(s) Start Date: 04/29/15 Status: Ordered Results Hematology Most recent to 1 oldest [Reference Range]: WBC [4.8-10.8 7.9 10*3/uL 10*3/uL] (12/09/15 3:02 PM) RBC [4.00-5.20] 4.44 (12/09/15 3:02 PM) Hgb [12.0-16.0 13.6 gm/dL gm/dL] (12/09/15 3:02 PM) Hct [37.0-47.0 %] 40.5 % (12/09/15 3:02 PM) MCV [82.0-99.0 fL] 91.2 fL (12/09/15 3:02 PM) MCH [27.0-32.0 pg] 30.6 pg (12/09/15 3:02 PM) MCHC [32.0-36.0 33.6 gm/dL gm/dL] (12/09/15 3:02 PM) RDW [11.5-14.5 %] 13.0 % (12/09/15 3:02 PM) Platelet [150-400 367 10*3/uL 10*3/uL] (12/09/15 3:02 PM) MPV [8.8-14.8 fL] 10.1 fL (12/09/15 3:02 PM) Immature 0.4 % Granulocytes (12/09/15 3:02 PM) [0.0-1.0 %] Neutrophils [51-75 57 % %] (12/09/15 3:02 PM) Lymphocytes [20-46 31 % %] (12/09/15 3:02 PM) Monocytes [4-11 %] 7 % (12/09/15 3:02 PM) Eosinophils [0-4 %] 4 % (12/09/15 3:02 PM) Basophils [0-2 %] 1 % (12/09/15 3:02 PM) Neutro Absolute 4.52 10*3 [1.90-7.00 10*3] (12/09/15 3:02 PM) Lymph Absolute 2.44 10*3 [0.80-3.30 10*3] (12/09/15 3:02 PM) [place] Absolute 0.57 10*3 [0.30-1.00 10*3] (12/09/15 3:02 PM) Eos Absolute 0.28 10*3 [0.00-0.50 10*3] (12/09/15 3:02 PM) Baso Absolute 0.05 10*3 [0.00-0.20 10*3] (12/09/15 3:02 PM) Chemistry Most recent to 1 oldest [Reference Range]: Sodium Lvl [135-144 140 mEq/L mEq/L] (12/09/15 3:02 PM) Potassium Lvl 4.2 mEq/L [3.5-5.2 mEq/L] (12/09/15 3:02 PM) Chloride [99-111 109 mEq/L mEq/L] (12/09/15 3:02 PM) CO2 [22-31 mEq/L] 23 mEq/L (12/09/15 3:02 PM) AGAP [3-20] 8 (12/09/15 3:02 PM) BUN [7-19 mg/dL] 10 mg/dL (12/09/15 3:02 PM) Glucose Lvl [70-99 84 mg/dL mg/dL] (12/09/15 3:02 PM) Creatinine Lvl 0.86 mg/dL [0.57-1.11 mg/dL] (12/09/15 3:02 PM) eGFR [>60 mL/min] >60 mL/min 1 (12/09/15 3:02 PM) Calcium Lvl 10.0 mg/dL [8.9-10.5 mg/dL] (12/09/15 3:02 PM) Albumin Lvl [3.5-5.0 4.6 gm/dL gm/dL] (12/09/15 3:02 PM) Total Protein 7.6 gm/dL [6.4-8.3 gm/dL] (12/09/15 3:02 PM) Globulin [1.8-4.0 3.0 gm/dL gm/dL] (12/09/15 3:02 PM) ALT [0-55 U/L] 19 U/L (12/09/15 3:02 PM) AST [5-34 U/L] 15 U/L (12/09/15 3:02 PM) Alk Phos [40-150 93 U/L U/L] (12/09/15 3:02 PM) Bili Total [0.2-1.2 0.5 mg/dL mg/dL] (12/09/15 3:02 PM) TSH with Reflex Free 1.18 T4 [0.35-4.94] (12/09/15 3:02 PM) 1Result Comment: Multiply eGFR results by 1.21 for race. Immunizations Vaccine Date Refusal Reason hepatitis B [...] Visit Note Author: Cm Lyman MD Date: 12/09/15 Assessment/Plan Benign essential HTN I recommended starting lisinopril 20 mg daily. Laboratory studies ordered today. Follow-up in one month for recheck. Problems with the medication the let me know. Encouraged to avoid excess salt intake Ordered: Office Visit Level 3 Est 32541 Obesity Encouraged weight loss. Ordered: Office Visit Level 3 Est 98262
--- OUTSIDE RECORDS SUMMARY | 2016-11-04 15:19 | XMS REPORT | Continuity of Care Document ---
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 - *Chronic Kidney stone on right side - Recurrent Abnormal CT scan, kidney - New onset Abnormal CT scan, lung - New onset Ureteral obstruction, right - *Acute Calculus of ureter - *Acute Unspecified mental retardation - *Chronic Gynecological Examination - *Routine Contraceptive surveillance, unspecified - *Routine GERD - *Controlled Allergic rhinitis, cause unspecified - *Controlled Obesity - *Chronic OT NONSP AB FND LUNG FLD - Asymptomatic Unspecified mental retardation - *Chronic Personal history of urinary calculi - *Resolved VARICELLA UNCOMPLICATED - OVERWEIGHT - TENSION HEADACHE - 311 - DEPRESSIVE DISORDER NEC - 319 - INTELLECT DISABILITY NOS - ALLERGIC RHINITIS NOS - 486 - PNEUMONIA, ORGANISM NOS - ESOPHAGEAL REFLUX - IMPAIRED FASTING GLUCOSE - Family History Family Member Diagnosis Age At Onset Status Father (Unknown) Diabetes Yes Father (Unknown) Obesity Yes Social History Social History Element Description Quantity Unknown Allergies, Adverse Reactions, Alerts Substance Reaction Severity Status UNABLE TO ASSESS Unknown UNABLE TO ASSESS Unknown Medications Medication Instructions Dosage Effective Dates (start - stop) Status loratadine 10 mg tablet take 1 tablet (10MG) by oral route every day 10 MG - Active Sudogest 30 mg tablet take 2 tablet (60MG) by oral route every 6 hours as needed 60 MG - Active benzonatate 100 mg capsule take 1 capsule (100MG) by oral route 3 times every day 100 MG - Active ranitidine 150 mg capsule take 1 capsule (150MG) by oral route 2 times every day 150 MG - Active Depo-Provera 150 mg/mL intramuscular suspension inject 1 milliliter (150MG) by intramuscular route every 3 months 150 MG - Active Flonase 50 mcg/actuation nasal spray,suspension inhale 1 spray (50MCG) by intranasal route every day in each nostril 50 MCG - Active Immunizations Vaccine Date Status Comments HPV (quadrivalent) completed - Completed reason: source unspecified HPV (quadrivalent) completed - Completed reason: source unspecified Tdap (Adacel ) completed - Completed reason: source unspecified hep B (ped/adol, 3 dose) completed - Completed reason: source unspecified hep B (ped/adol, 3 dose) completed - Completed reason: source unspecified hep B (ped/adol, 3 dose) completed - Completed reason: source unspecified flu (split) (3 yrs or older) completed - Completed reason: other provider Results Test Name Date and Time Measure Units Reference Range Abnormal Flag Comments Unknown Vital Signs Date / Time: Height Weight Pulse Rate Blood Pressure Temperature /10:50:00 68.00 in 267.00 lbs 76 /min 138/90 mm[Hg] 97.9 F Procedures Procedure Date Unknown Encounters Encounter Location Date Patient Visit [facility] Patient Visit [facility] Patient Visit [facility] Patient Visit [facility] Patient Visit [facility] Urology Patient Visit [facility] Patient Visit [facility] Urology Patient Visit [facility] Patient Visit [facility] Patient Visit [facility] Advance Directives Directive Effective Date Unknown
--- NOTE | 2016-11-04 15:20 | NUR ---
PROVIDER DR BUCHANAN IN ROOM W/ PT.
--- OUTSIDE RECORDS SUMMARY | 2016-11-04 15:28 | XMS REPORT | Continuity of Care Document ---
Author Author [facility] Organization [facility] Address Unknown Phone Unavailable Allergies Medications Problems Procedures Results Encounters ACCT No. Visit Date/Time Discharge Status Pt. Type Provider Facility Loc./Unit Complaint [id number] 11/04/2013 10:40:00 11/04/2013 23 :59:59 CLS Outpatient
--- OUTSIDE RECORDS SUMMARY | 2016-11-04 15:28 | XMS REPORT | Continuity of Care Document ---
Author Author [facility] Organization [facility] Address Unknown Phone Unavailable Support Name Relationship Address Phone RANCHO GONCALVES MD Caregiver [facility] [address] [place] [address] Unavailable JUNIOR HEATON MD Caregiver [address] [place] [address] [phone] [place] Next Of Kin CONCRETE BUCKET HOOKER Unknown [phone] Insurance Providers Payer Name Policy Number Subscriber Name Relationship Medicare [id number] Diane Sabillon 20 Self Jonnie [employer] [id number] Diane Sabillon 20 Self Advance Directives Directive [...] F (96.8 - 99.1) Temperature (Calculated Celsius) 36.32685 degrees C (36.0 - 37.3) Pulse Rate [...] Has specimen been collected/obtained? Y Urine Specific [place] March 09, 2011 6:15pm 1.025 - Has [...] Date Provider(s) EMERGENCY DEPT VISIT completed 10/01/14 [id number] ITEM OR SERVICE completed 10/01/14 Encounters Encounter Location Date/Time Departed Emergency Room [facility] 10/01/14 7:41pm Recent Diagnosis
--- NOTE | 2016-11-04 15:43 | ERPDOC ---
Departure Disposition Decision Date: Nov 04, 2016 Disposition Decision Time: 15:43 Disposition: 01 DISCHARGED HOME, SELF-CARE Impression Impression Impression: Primary Impression: Sinusitis Additional Impression: Epistaxis Severity: Moderate Condition: Improved Seen By: Physician only Referrals: JUNIOR HEATON MD (Family) Problems/Meds/Labs Reviewed?: Yes Medications reviewed and manag: Yes Additional Instructions: Keflex 500 mg tab, 2 tabs twice daily for 10 days. Use your Flonase daily, 2 sprays in each nostril. This for at least a month to see if nosebleeds resolve. Follow up care ordered?: Yes Mental Status: Alert Scripts Cephalexin (Keflex) 500 Mg Capsule 2 CAP PO BID, #40 CAP Prov: MELY VANN MD 11/04/16 Fluticasone Propionate (Flonase Allergy Relief 50 mcg/actuation Nasal) 9.9 Ml [place].susp 2 SPRAY NS DAILY, #1 UNIT 3 Refills Prov: MELY VANN MD 11/04/16 HPI General Chief Complaint: Nosebleed Stated Complaint: NOSE BLEED Time Seen by Provider: 15:20 HPI Nosebleed Initial Comments 36-year-old female presents status post nosebleed. Patient has had nosebleeds in the past, had one today for about 30 minutes. She usually can figure out why they happened, but was not certain about today's and became concerned. She presents to the ED for evaluation. Bleeding is stopped, she has no current symptoms or complaints. She does have a prescription for Flonase, but uses it only on occasion if she has a nosebleed. No fevers or chills Allergies: Coded Allergies: No Known Allergies (Unverified , 10/01/14) Past History Past Medical History Metabolic: diabetes ENMT: dental problems Female: kidney stones Neurological: seizures Surgical History Denies Surgeries Family History Family PMH: FOUND: hypertension Vaccines Hx Influenza Vaccination: Yes (fall 2013) Hx Pneumococcal Vaccination: No Social History Smoking Status: Never smoker Substance Use Type: does not use Alcohol Intake: none Record Review Pertinent history updated: Yes Review of Systems ENMT Nose: see HPI All other Systems All Other Systems: Reviewed and Negative Exam General General Nourishment: adult, obese General Body Habitus: well groomed Height (Feet): 5 Height (Inches): 5.00 [place] Nosebleed Nose: ecchymosis, erythema, swelling, NOT FOUND: deformity Mouth/Pharynx: blood in pharynx (minimal) Respiratory (brief) Respiratory Brief: FOUND: clear all ortega, equal bilaterally Cardiovascular (brief) Cardiac Brief: FOUND: regular rate, regular rhythm Neurologic RN Documented GCS Eye Opening: Verbal: Motor: Total: Differential Diagnoses Considering: Hypertension, Nasal [place] Damage, Septal Hematoma, Other ( epistaxis) Progress Progress Progress Patient has a prescription for Flonase, but does not use it on a regular basis. I explained that the steroid needs to be applied regularly in order to be effective. At this point we are heading into allergy season, I think her likelihood of nosebleed is going to increase. Therefore I recommended she use the Flonase daily for a month to see if it would help. She agreed to do this. The nosebleed is resolved and she is not currently bleeding. I did treat her for a sinus infection as she has red and boggy nares with postnasal drainage. MELY VANN MD Nov 04, 2016 15:42
[2016-11-04] MEDS ORDERED: CEPH-583 PO (15:45)
[2016-11-04] MEDS ORDERED: FLUT9.9S NS (15:45)
[2016-11-04] MEDS ORDERED: LISI-621 PO (15:48)
[2016-11-04] MEDS ORDERED: FLUT16SP EA NOSTRIL (15:48)
[2016-11-04] MEDS ORDERED: RANI150T7 PO (15:48)
[2016-11-04] MEDS ORDERED: LORA10TA7 PO (15:48)
--- NOTE | 2016-11-04 16:15 | NUR ---
DISCHARGE PT GIVEN INSTRUCTIONS FOR CONT CARE OF NOSE BLEED W/ RX X2 OF KEFLEX AND FLONASE, PT VERBALIZED UNDERSTANDING AND SIGNED FORM. PT LEFT ER AMBULATORY W/O ASSIST VS CHARTED AND NO ACUTE DISTRESS.
[2016-11-04 16:17] VITALS: BP 129/69; PULSE 82; RESP 16; TEMP 98.9; O2SAT 96
== END 2016-11-04 16:15 | disposition home or self-care (01) ==
LOC: ED 15:14
DX: R04.0 Epistaxis (principal); J32.9 Chronic sinusitis, unspecified